=== PATIENT | female | born 1980 | race Caucasian/White ===

== ENCOUNTER 2019-05-06 21:27 | Emergency (ER) | payer OTHER ==
--- NOTE | 2019-05-06 21:49 | RAD ---
XR Ankle Rt 3 View STANDARD HISTORY: Right ankle injury. COMPARISON: None. FINDINGS: There is soft tissue swelling adjacent to the lateral malleolus. Small bony avulsion is see n from the tip of the fibula that could be acute. No joint effusion. Calcaneal spurs are noted. IMPRESSION: Small avulsion fracture from the tip of the fibula possibly acute.
[2019-05-06] MEDS ORDERED: Acetaminophen 500 MG TAB ONE (22:41)
== END 2019-05-06 22:45 | disposition home or self-care (01) ==
LOC: ERS 21:27
DX: S82.831A Other fracture of upper and lower end of right fibula, initial encounter for closed fracture (principal); X50.9XXA Other and unspecified overexertion or strenuous movements or postures, initial encounter; Y93.B9 Activity, other involving muscle strengthening exercises